=== PATIENT | female | born 1995 | race Two or more races ===

== ENCOUNTER 2024-01-05 09:32 | Emergency (ER) | payer OTHER ==
[~2024-01-05] VITALS: Ht 162.6 cm; Wt 141.2 kg
[2024-01-05 10:08] VITALS: BP 162/101; PULSE 103; RESP 18; TEMP 98; O2SAT 99
[2024-01-05 11:05] LABS: Urine Bacteria NONE SEEN /hpf (None Seen); Urine Blood Negative /uL (Negative); Urine Clarity Clear (Clear); Urine Color Colorless (Yellow); Urine Mucus FEW (None Seen); Urine Protein, UAD Negative (Negative); Urine Specific Gravity 1.017 (1.001-1.035); Urine Urobilinogen Normal (Negative); Urine WBC <1 /hpf (0 - 5)
[2024-01-05] MEDS ORDERED: METR-344 PO (11:25)
== END 2024-01-05 11:34 | disposition home or self-care (01) ==
LOC: ER 09:32
DX: G89.29 Other chronic pain (principal); R10.2 Pelvic and perineal pain; N76.0 Acute vaginitis; Z32.02 Encounter for pregnancy test, result negative
CPT/HCPCS: 76856; 81001; 81025